=== PATIENT | male | born 1955 | race Caucasian/White ===

== ENCOUNTER → 2016-11-30 | Outpatient (CLI) | payer OTHER, BC ==
[~2016-11-30] MED LIST: ATIVAN0.5 MG PO; BACTRIM DS TAB1 EACH PO; LASIX 20 MG TAB20 MG PO; LISINOPRIL-HCT1 EACH PO; LISINOPRIL20 MG PO; LOPRESSOR50 PO; NORVASC10 MG PO; PAXIL10 MG; PAXIL10 MG PO; PREDNISONE 10 M10 MG PO; PREDNISONE 20 M20 MG PO; PREDNISONE 5 MG5 M1 PO; PRILOSEC 20 MG20 MG PO; PRILOSEC20 MG PO; PRINIVIL20 MG PO; RENO CAPS SOFTGE1 MG PO; TESTOSTERO200 MG/1 M IM; TUMS PO; UNKNOWN BP MED; ZOCOR20 MG PO; ZOFRAN ODT4 MG SUBLING
== END ==
LOC: RAD 15:23
DX: N18.6 End stage renal disease (principal)

== ENCOUNTER 2018-08-06 12:26 | Inpatient (IN) | payer OTHER, BC ==
[~2018-08-06] VITALS: Ht 180.3 cm; Wt 98.0 kg
[2018-08-06 14:04] VITALS: BP 194/89
--- NOTE | 2018-08-06 15:44 | NUR ---
PT arrived on unit at 1530. pt came from [facility] be admitted. pt is a/ox4 with no issues. pt had no concerns at this time. completed admissions, waiting on all dr orders. will continue to john
[2018-08-07 04:22] VITALS: BP 202/96
--- NOTE | 2018-08-07 05:41 | NUR ---
Pt. rested quietly at intervals during the night when checked on during frequent rounds. No c/o pain. Droplet isolation precautions taken for influenza. Up ad crystal in his room.
[2018-08-07 05:56] LABS: ABSOLUTE NEUTROPHILS 6.5 thou/uL (1.4-8.2); BASOPHILS 0.4 % (0.0-2.0); HEMATOCRIT 32.9 % (42.0-52.0); HEMOGLOBIN 11.1 gm/dL (14.0-18.0); LYMPHOCYTES 5.3 % (24.0-44.0); MCH 31.4 pg (26.0-34.0); MCHC 33.7 g/dL (28.0-37.0); MCV 93.3 fL (80.0-100.0); MONOCYTES 1.1 % (1.0-8.0); PLATELET COUNT 272 thou/uL (150-400); POLYS 93.2 % (36.0-66.0); RBC 3.52 mil/uL (4.50-6.00); RDW 14.8 % (10.5-14.5); WBC 6.9 thou/uL (4.0-11.0)
[2018-08-07 06:05] LABS: CALCIUM 8.4 mg/dL (8.5-10.1); CREATININE 10.7 mg/dL (0.7-1.3); MAGNESIUM 1.2 mg/dL (1.8-2.4); POTASSIUM 3.3 mmol/L (3.5-5.1)
[2018-08-07 07:30] VITALS: BP 172/83
[2018-08-07] MEDS ORDERED: NORVASC2.5 MG PO (09:46)
[2018-08-07] MEDS ORDERED: GENTAMICIN 0.15 CR TOP (09:49)
[2018-08-07] MEDS ORDERED: PRILOSEC OTC20 MG PO (09:50)
[2018-08-07] MEDS ORDERED: CRESTOR10 MG PO (09:52)
[2018-08-07] MEDS ORDERED: AMBIEN 5 MG TABL5 M1 PO (09:53)
--- NOTE | 2018-08-07 14:34 | NUR ---
PT ADMITTED RELATED TO PHEUMONIA. CM REVIEWED CHART AND SPOKE WITH CARE TEAM. CM MET WITH PT AT BEDSIDE THIS DAY. PT IS A&O X4. CM ROLE INTRODUCED. PT INDICATED HE LIVES IN A CONDO WITH 2 STEPS TO ENTER AND 4 STEPS INSIDE. PT INDICATED HE HAD BEEN INDEPENDENT WITH GAIT AND ADLS SWAGE TOOLSETTER. PT DOES PERITONEAL DIALYSIS AND IS FOLLOWED BY ANDREA ROSALES. PT INDICATED NO HH HX. PT STATED HE ANTICIPATES RETURNING HOME ONCE MEDICALLY STABLE. CM TO FOLLOW INDICATED WITH DC PLANNING.
--- NOTE | 2018-08-07 14:57 | NUR ---
PT STABLE THROUGHOUT SHIFT. PT HAD NO COMPLAINTS. MG WAS LOW AT 1.2, MG. REPLACED. PT RESTING COMFORTABLY.
[2018-08-07 15:00] VITALS: BP 150/72
[2018-08-07 19:20] VITALS: BP 170/76
--- NOTE | 2018-08-08 04:46 | NUR ---
Pt. rested quietly at intervals during the night when checked on during frequent rounds. He did c/o some heartburn and [employer] notified via telephone and new orders for Tums. Tums given (see emar) with relief. He offers no c/o pain. Has a non-productive congested cough. Droplet pre- cautions taken for influenza.
[2018-08-08 04:59] VITALS: BP 181/85
[2018-08-08 09:29] VITALS: BP 177/76
--- NOTE | 2018-08-08 09:41 | HC ---
[facility] [place] [address] CONSULTATION Name: DEYSI VENCES Room #: 459-P ADM IN M.R.#: [id number] Admission: 08/06/18 Attend Phys: Roni Galarza MD Discharge: Date of : 57 Report #: [id number] THIS REPORT FOR: //name// [facility] REASON FOR CONSULTATION: End-stage renal disease. REASON FOR PRESENTATION: Cough and not feeling well. HISTORY OF PRESENT ILLNESS: A 63-year-old with extensive past medical history including hypertension; end-stage renal disease, maintained on hemodialysis; pneumocystis infections in the past. He visited with [facility] facility after not feeling well since Monday. He tells me that he was in a . 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 I am being consulted to manage his peritoneal dialysis related issues. He has been diagnosed with influenza A. MEDICATIONS: 1. Metoprolol. 2. Folic acid. 3. Paroxetine. 4. Calcium carbonate. 5. Tamiflu. 6. Azithromycin. 7. Ceftriaxone. PAST MEDICAL HISTORY: 1. Fibrillary glomerulonephritis. 2. End-stage renal disease due to the above. 3. Hyperlipidemia. 5. Hypertension. 6. Depression. FAMILY HISTORY: Sisters with PE. SOCIAL HISTORY: He is an ex-smoker. No drug or alcohol abuse. PAST SURGICAL HISTORY: 1. PD catheter. 2. Bronchoscopy. REVIEW OF SYSTEMS: GENERAL: Significant for weakness and malaise. CARDIOVASCULAR: Significant for shortness of breath. PULMONARY: Significant for cough and shortness of breath. GASTROINTESTINAL: No nausea or vomiting. [facility] [address] [place] [address] CONSULTATION Name: DEYSI VENCES Room #: 459-P ADM IN M.R.#: [id number] Admission: 08/06/18 Attend Phys: Roni Galarza MD Discharge: Date of : 57 Report #: [id number] MUSCULOSKELETAL: Diffuse myalgias. PHYSICAL EXAMINATION: GENERAL: He is alert, oriented. VITAL SIGNS: Pulse is 90, temperature is 36.7, blood pressure is elevated at 172/83. HEAD AND NECK: No jugular venous distention. CHEST: No crackles. CARDIOVASCULAR: No rub. ABDOMEN: Soft, nontender. PD catheter in place. LOWER EXTREMITIES: No edema. LABORATORY DATA: Reviewed. Potassium is 3.3, magnesium is 1.2. Hemoglobin is 11.1. IMAGING: Chest CT revealed bilateral pulmonary infiltrates, suggesting pneumonia. There is a dense right lower lung infiltrate. ASSESSMENT, IMPRESSION AND PLAN: 1. End-stage renal disease. 2. Pneumonitis. 3. Fluid overload. 4. Influenza. 5. Hypertension. 6. Hypokalemia. 7. Hypomagnesemia. 8. The patient is currently being treated for his pneumonitis by the primary team. He was started on appropriate anti-influenza medications. 9. We will continue with the usual peritoneal dialysis. 10. Replace potassium. 11. Replace magnesium. 12. Resume blood pressure medication. <ELECTRONICALLY SIGNED> By: Taty Rosenberg MD 08/08/18 0941 [id number] Taty Rosenberg MD /nt
[2018-08-08] MEDS ORDERED: AZITHROMYCIN 2250 MG PO (12:02)
[2018-08-08] MEDS ORDERED: PREDNISOLONE 5 M5 M1 PO (12:02)
[2018-08-08] MEDS ORDERED: OSELB75 PO (12:02)
[2018-08-08 12:31] VITALS: BP 177/76
--- NOTE | 2018-08-08 14:23 | NUR ---
DISCHARGE ORDERS RECEIVED. PATIENT DISCHARGING TO HOME TODAY. DISCHARGE ORDERS, DISCHARGE SUMMARY, H&P, AND DIALYSIS CLINICAL INFORMATION FAXED TO [facility] FOR [facility] ROSALES, VERIFIED RECEIVED.
--- NOTE | 2018-08-08 14:32 | NUR ---
Pt vs stable, no complaints or pain or discomfort. Pt is up at crystal and is able to ambulate within his room. IV medication given, dc orders and instructions given to pt. All oral medication and IV medication given. Awaiting to spanish moss picker the pt.
== END 2018-08-08 16:13 | disposition home or self-care (01) | DRG 871 ==
LOC: 4W 12:26 → ENTRNSPT 08-08 15:13 → EDTRNSPTSTS 08-08 15:15 → 4W 08-08 16:13
PROVIDERS: Nurse Practitioner; ADMIT Hospitalist
PROC: 3E1M39Z Irrigation of Peritoneal Cavity using Dialysate, Percutaneous Approach (ICD-10-PCS; principal; 2018-08-07)
DX: A41.9 Sepsis, unspecified organism (principal); J10.00 Influenza due to other identified influenza virus with unspecified type of pneumonia; N18.6 End stage renal disease; J98.11 Atelectasis; I12.0 Hypertensive chronic kidney disease with stage 5 chronic kidney disease or end stage renal disease; E87.6 Hypokalemia; E78.5 Hyperlipidemia, unspecified; E83.42 Hypomagnesemia; F32.9 Major depressive disorder, single episode, unspecified; E66.9 Obesity, unspecified; Z68.30 Body mass index [BMI] 30.0-30.9, adult; Z99.2 Dependence on renal dialysis; Z87.891 Personal history of nicotine dependence; Z79.899 Other long term (current) drug therapy; Z82.49 Family history of ischemic heart disease and other diseases of the circulatory system; Z28.21 Immunization not carried out because of patient refusal
CPT/HCPCS: 10045; 10047; 33000